=== PATIENT | male | born 1965 | race Caucasian/White ===

== ENCOUNTER 2017-01-01 15:03 | Emergency (ER) | payer OTHER ==
[~2017-01-01] VITALS: Ht 177.8 cm; Wt 97.5 kg
--- NOTE | ~2017-01-01 | EKG ---
[address] [place] [address] ELECTROCARDIOGRAM REPORT Name: SADA SCHREIBER [facility] [id number] Admission: 01/01/17 Attend Phys: Discharge: 01/01/17 Date of : 61 Report #: [id number] THIS REPORT FOR: //name// [facility] ED Test Date: 2017-01-01 Test Time: 15:10:43 Pat Name: SADA SCHREIBER Department: Room: Gender: Service Correspondent: : 1965 Requested By: Emi Bauman Order Number: [id number] MD: Riky Turcios Measurements Intervals [place] Rate: 68 P: 26 [place]: 170 QRS: 18 QRSD: 98 T: 32 QT: 400 QTc: 426 Interpretive Statements Sinus rhythm Normal tracing No previous ECG available for comparison Electronically Signed On 01-02-2017 7:53:05 CDT by Riky Turcios [email or web address] <ELECTRONICALLY SIGNED> By: Riky Turcios MD, [facility] 01/02/17 0753 [id number] 1510 Riky Turcios MD, FACC /EPI
[2017-01-01 15:32] LABS: HEMATOCRIT 49.1 % (42.0-52.0); HEMOGLOBIN 16.9 gm/dL (14.0-18.0); MCH 32.9 pg (26.0-34.0); MCHC 34.4 g/dL (28.0-37.0); MCV 95.8 fL (80.0-100.0); RBC 5.13 mil/uL (4.50-6.00); WBC 12.7 thou/uL (4.0-11.0)
[2017-01-01 15:44] LABS: ANION GAP 9 mmol/L (7-16); BUN 11 mg/dL (7-18); CALCIUM 10.4 mg/dL (8.5-10.1); CHLORIDE 105 mmol/L (98-107); CO2 28 mmol/L (21-32); CREATININE 1.1 mg/dL (0.7-1.3); GLUCOSE 95 mg/dL (74-106); POTASSIUM 3.9 mmol/L (3.5-5.1); SODIUM 142 mmol/L (136-145)
[2017-01-01 15:53] LABS: ALBUMIN 3.9 g/dL (3.4-5.0); ALKALINE PHOSPHATASE 65 U/L (46-116); SGOT 25 U/L (15-37); SGPT 31 U/L (30-65); TOTAL BILIRUBIN 0.4 mg/dL (<0.1-1.0); TOTAL PROTEIN 7.6 g/dL (6.4-8.2); TROPONIN-I < 0.04 ng/mL (<0.04-0.07)
[2017-01-01] MEDS ORDERED: TOPROL XL100 MG PO (16:17)
[2017-01-01] MEDS ORDERED: PEPCID20 MG PO (19:28)
[2017-01-01 19:33] VITALS: BP 132/81
== END 2017-01-01 19:33 | disposition home or self-care (01) ==
LOC: ER 15:03
PROVIDERS: Physician Assistant
DX: R07.89 Other chest pain (principal); R10.13 Epigastric pain; I10 Essential (primary) hypertension; F17.210 Nicotine dependence, cigarettes, uncomplicated; F10.99 Alcohol use, unspecified with unspecified alcohol-induced disorder